=== PATIENT | male | born 1985 | race American Indian/Alaskan Native ===

== ENCOUNTER 2020-10-25 00:37 | Emergency (ER) | payer SELFPAY ==
[2020-10-25 00:46] VITALS: BP 104/72
[2020-10-25] MEDS ORDERED: DIPHtheria,PERTUSSIS(ACELL),TETANUS VACCINE/PF 0.5 ML VIAL IM ONE (01:09)
[2020-10-25] MEDS ORDERED: IBUPROFEN 600 MG TAB PO ONE (01:09)
--- NOTE | 2020-10-25 02:12 | Cat Scan Report ---
CT head/brain wo con, CT facial bones wo con INDICATION: FALL - PAIN. TECHNIQUE: CT head and CT face. All CT scans at this location are performed using CT dose reduction f or ALARA by means of automated exposure control. COMPARISON: None. FINDINGS: Head: Intracranial: Hammond-white matter differentiation is maintained. No intracranial hemorrhage. No extra a xial collection.. No hydrocephalus. No herniation. Calvarium: No acute fracture. Face: Facial bones: Left cheek soft tissue swelling. Facial bones are intact without fracture. Mandibular c ondyles are well-seated within the glenoid fossa of the temporal mandibular joint. Sinuses: Mild mucosal thickening in the left greater than right mastoid sinuses. There are caries and periapical lucencies. There is a periapical lucency with dehiscence of the overlying mastoid sinus w all involving the second left maxillary molar. Otherwise the sinuses are well-aerated.. Orbits: Globes are intact. Additional findings:No other significant abnormality. IMPRESSION: 1. No acute intracranial abnormality. 2. Left cheek soft tissue swelling. No facial bone fracture. 3. Left maxillary sinus disease which is likely odontogenic as described above. Signer Name: Tesfaye Pascal MD Signed: 10/25/2020 2:08 AM Workstation Name: [id number]
--- NOTE | 2020-10-25 03:00 | Emergency Department Report ---
ED Head Trauma HPI - General Chief complaint: Head Injury Stated complaint: LACERATION TO LEFT EYE Source: patient Mode of arrival: Ambulatory Limitations: No Limitations - History of Present Illness Initial comments: Patient is a 34-year-old -[place] male with no past medical history presents to the ED with complaint of acute onset persistent headache, left supraorbital bleeding laceration and left periorbital hematoma and pain after tripping at work and falling down hitting his face against a piece of furniture about 1 hour ago. Patient states that him and his friends were drinking alcohol at work when this occurred. Patient states that the facial pain and the headache has worsened since the onset of the symptoms. Patient states that he is not up-to-date with tetanus vaccinations. Patient denies loss of consciousness, seizures, syncope, physical assault, dizziness, nausea and vomiting, change in vision, abdominal pain, chest pain, neck pain, back pain, numbness and tingling or weakness of upper and lower extremities bilaterally. MD Complaint: head injury (left supraorbital laceration), fall, other (left supraorbital laceration) -: Sudden, hour(s) (1) Arrival Conditions: Positive: other (Ambulatory) Mechanism of Injury: other (Fall) Location: face (Left periorbital and supraorbital pain) Loss of Consciousness: no Previous Trauma to this Area: No Place: work Radiation: none Severity: severe Severity scale (0 -10): 7 Quality: sharp, aching Consistency: constant Provoking factors: none known Other Injuries: laceration (Left supraorbital), other (Left periorbital swelling and hematoma) Associated Symptoms: denies other symptoms, other (Headache). denies: confusion, amnesia, repetitive questioning, vision changes, nausea, vomiting, vertigo, syncope, numbness, weakness, tingling, neck pain - Related Data Previous Rx's Medication Instructions Recorded Last Taken Type HYDROcodone/ACETAMINOPHEN [Alden 1 each PO Q6H #30 tablet 07/11/14 Unknown Rx 5/325 Tablet] dexAMETHasone [Decadron] 4 mg PO ONCE #10 tablet 07/11/14 Unknown Rx cephALEXin [Keflex] 500 mg PO Q6H #40 capsule 01/19/15 Unknown Rx Ibuprofen [Motrin] 600 mg PO Q8H PRN #24 tablet 10/25/20 Unknown Rx cephALEXin [Keflex] 500 mg PO Q8HR #30 cap 10/25/20 Unknown Rx Allergies/Adverse reactions: Allergies Allergy/AdvReac Type Severity Reaction Status Date / Time No Known Allergies Allergy Verified 07/11/14 01:21 ED Review of Systems ROS: Stated complaint: LACERATION TO LEFT EYE Other details as noted in HPI Constitutional: denies: chills, fever Eyes: other (Left periorbital mild swelling with ecchymosis; left supraorbital bleeding laceration). denies: eye pain, eye discharge, vision change ENT: denies: ear pain, throat pain Respiratory: denies: cough, shortness of breath, wheezing Cardiovascular: denies: chest pain, palpitations Endocrine: no symptoms reported. denies: excessive sweating Gastrointestinal: denies: abdominal pain, nausea, vomiting, diarrhea Genitourinary: denies: urgency, dysuria Musculoskeletal: denies: back pain, joint swelling, arthralgia Skin: other (Left periorbital ecchymosis; left supraorbital bleeding laceration). denies: rash, lesions Neurological: headache. denies: weakness, paresthesias Psychiatric: denies: anxiety, depression Hematological/Lymphatic: denies: easy bleeding, easy bruising ED Past Medical Hx - Past Medical History Previous Medical History?: Yes Hx Psychiatric Treatment: Yes (anxiety) - Surgical History Past Surgical History?: No - Social History Smoking Status: Never Smoker Substance Use Type: Alcohol - Medications Home Medications: Home Medications Medication Instructions Recorded Confirmed Last Taken Type HYDROcodone/ACETAMINOPHEN [Alden 1 each PO Q6H #30 tablet 07/11/14 Unknown Rx 5/325 Tablet] dexAMETHasone [Decadron] 4 mg PO ONCE #10 tablet 07/11/14 Unknown Rx cephALEXin [Keflex] 500 mg PO Q6H #40 capsule 01/19/15 Unknown Rx Ibuprofen [Motrin] 600 mg PO Q8H PRN #24 tablet 10/25/20 Unknown Rx cephALEXin [Keflex] 500 mg PO Q8HR #30 cap 10/25/20 Unknown Rx ED Physical Exam - General Limitations: No Limitations General appearance: alert, in no apparent distress - Head Head exam: Present: other (Palpable left periorbital tenderness and supraorbital bleeding 2 cm laceration) - Eye Eye exam: Present: normal appearance, PERRL, EOMI Pupils: Present: normal accommodation - ENT ENT exam: Present: normal orophraynx, mucous membranes moist, TM's normal bilaterally, normal external ear exam, other (Left periorbital ecchymosis, mild swelling and localized tenderness) - Neck Neck exam: Present: normal inspection, full ROM - Respiratory Respiratory exam: Present: normal lung sounds bilaterally. Absent: respiratory distress, wheezes, rales, rhonchi, chest wall tenderness, accessory muscle use, decreased breath sounds - Cardiovascular Cardiovascular Exam: Present: regular rate, normal rhythm, normal heart sounds. Absent: systolic murmur, diastolic murmur, rubs, gallop - GI/Abdominal GI/Abdominal exam: Present: soft, normal bowel sounds. Absent: distended, tenderness, guarding, rebound, hyperactive bowel sounds, hypoactive bowel sounds, organomegaly - Extremities Exam Extremities exam: Present: normal inspection, full ROM, normal capillary refill - Back Exam Back exam: Present: normal inspection, full ROM. Absent: tenderness, CVA tenderness (R), CVA tenderness (L), muscle spasm, paraspinal tenderness, vertebral tenderness - Neurological Exam Neurological exam: Present: alert, oriented X3, CN II-XII intact, normal gait, reflexes normal - Psychiatric Psychiatric exam: Present: normal affect, normal mood - Skin Skin exam: Present: warm, dry, intact, normal color, ecchymosis (Left periorbital mild swelling, ecchymosis and localized tenderness), other (Left supraorbital bleeding 2 cm laceration). Absent: rash ED Course Vital Signs 10/25/20 00:43 Temperature 98.0 F Pulse Rate 84 Respiratory 18 Rate Blood Pressure 104/72 O2 Sat by Pulse 96 Oximetry - Radiology Data Radiology results: report reviewed, image reviewed The head CT scan without contrast showed no acute intracranial abnormalities or hemorrhage. It also showed no facial bone fractures or subluxations. The facial CT scan without contrast showed no acute facial bone fractures or subluxations. - Medical Decision Making This is a 34-year-old -[place] male with no past medical history presents to the ED with complaint of acute onset persistent headache, left supraorbital bleeding laceration and left periorbital hematoma and pain after tripping at work and falling down hitting his face against a piece of furniture about 1 hour ago. Patient states that him and his friends were drinking alcohol at work when this occurred. Patient states that the facial pain and the headache has worsened since the onset of the symptoms. Patient states that he is not up-to-date with tetanus vaccinations. In the ED, patient is alert and oriented x3 and is not in distress. Patient was treated for pain and also given booster tetanus vaccination. On reevaluation, patient's pain is well controlled medications. The left supraorbital to central laceration was cleaned thoroughly with normal saline and closed with a Dermabond. Patient tolerated procedure well. The head CT scan without contrast showed no acute intracranial abnormalities or hemorrhage. Patient was discharged home on medications and advised to follow-up with his primary care physician in 7 to 10 days for reevaluation or return to the ED immediately if symptoms get worse. - Differential Diagnosis Scalp contusion; facial contusion; facial laceration; head injury - Core Measures AMI Core Measures Followed: No Measure Exclusions: not indicated - NEXUS Criteria Focal neurological deficit present: No Midline spinal tenderness present: No Altered level of consciousness: No Intoxication present: No Distracting injury present: No NEXUS results: C-Spine can be cleared clinically by these results. Imaging is not required. Critical care attestation.: If time is entered above; I have spent that time in minutes in the direct care of this critically ill patient, excluding procedure time. ED Disposition Clinical Impression: Contusion of face Qualifiers: Encounter type: initial encounter Qualified Code(s): S00.83XA - Contusion of other part of head, initial encounter Contusion of scalp Qualifiers: Encounter type: initial encounter Qualified Code(s): S00.03XA - Contusion of scalp, initial encounter Facial laceration Qualifiers: Encounter type: initial encounter Qualified Code(s): S01.81XA - Laceration without foreign body of other part of head, initial encounter Disposition: DC-01 TO HOME OR SELFCARE Is pt being admited?: No Does the pt Need Aspirin: No Condition: Stable Instructions: Facial or Scalp Contusion, [id number], Contusion, [id number], Laceration Care, Adult, [id number] Additional Instructions: Take medications with food, drink plenty of fluids and follow up with your Primary Care Physician in 7-10 days for reevaluation. Return to the ED immediately if symptoms get worse. Prescriptions: cephALEXin [Keflex] 500 mg PO Q8HR #30 cap Ibuprofen [Motrin] 600 mg PO Q8H PRN #24 tablet PRN Reason: Pain Referrals: [facility] [Provider Group] - 3-5 Days Forms: Work/School Release Form(ED) Time of Disposition: 03:01 Print Language: KAZAKH
== END 2020-10-25 03:06 | disposition home or self-care (01) ==
LOC: ED 00:37
DX: S01.81XA Laceration without foreign body of other part of head, initial encounter (principal); F41.9 Anxiety disorder, unspecified; Z79.899 Other long term (current) drug therapy; X58.XXXA Exposure to other specified factors, initial encounter; Y93.89 Activity, other specified; Y92.89 Other specified places as the place of occurrence of the external cause; Y99.0 Civilian activity done for income or pay
CPT/HCPCS: 70450; 70486; 90471; 90715; 99283